=== PATIENT | female | born 1975 | race American Indian/Alaskan Native ===

== ENCOUNTER 2019-09-07 00:58 | Inpatient (IN) | payer OTHER ==
[2019-09-07] MEDS ORDERED: SODIUM CHLORIDE 0.9% 1000 ML IV SOLN IV ONE (01:19)
[2019-09-07] MEDS ORDERED: ONDANSETRON 4 MG/2 ML INJ IV ONE (01:21)
[2019-09-07] MEDS ORDERED: MORPHINE 4 MG/1 ML INJ IV ONE (01:21)
[2019-09-07] MEDS ORDERED: ACETAMINOPHEN 500 MG TAB PO ONE (01:21)
--- NOTE | 2019-09-07 01:30 | Emergency Department Report ---
ED General Adult HPI - General Chief complaint: Fever Stated complaint: FLU LIKE SYMPTOMS Time Seen by Provider: 09/07/19 01:09 Source: patient, EMS ( EMS documentation not available at time of chart dictation ), RN notes reviewed Mode of arrival: Stretcher Limitations: No Limitations - History of Present Illness Initial comments: This is a 43-year-old female. This patient is not known to this provider previously. The patient states that she is not . during the entire history and physical, I am chaperoned and escorted by nurse Rosalva Bell The patient states she does not have a local primary care doctor; she's been living over here in [place] for 3 years. While in [facility], she reports a history of heart attack, likely 2, obesity, hypertension, diabetes. The patient presents to the ER today with a complaint of nontraumatic headache, bilateral paracervical neck pain, left shoulder pain that moves down to her left upper extremity, bilateral flank pain, right upper quadrant pain, nausea vomiting, dark colored urine, global weakness, fevers and chills. Nausea and vomiting started morning. She reports too many episodes of nonbloody, nonbilious emesis to count. She did not vomit on Sunday. She's had no changes to her bowel movements that she is aware of. She denies dysuria. She endorses dark colored urine. There is no head trauma. There is no neck trauma. There are no recent motor vehicle accidents, and there is no recent chiropractic manipulation. There is no complaint of neck stiffness. There is no midline distal spinal pain. There is no lower abdominal pain. There is positive cough. There is positive global weakness. Symptoms are constant, radiates as noted, decreased with rest, and increase with physical exertion. She does not believe that she had the flu shot this year. -: Gradual, days(s) Quality: other Consistency: other Improves with: other Worsens with: other Associated Symptoms: other - Related Data Home Medications Medication Instructions Recorded Confirmed Last Taken No Known Home Medications [No 09/07/19 09/07/19 Unknown Reported Home Medications] Allergies Allergy/AdvReac Type Severity Reaction Status Date / Time No Known Allergies Allergy Verified 09/07/19 01:24 ED Review of Systems ROS: Stated complaint: FLU LIKE SYMPTOMS Other details as noted in HPI Constitutional: fever, malaise, weakness Eyes: denies: eye discharge ENT: denies: congestion Respiratory: cough Cardiovascular: denies: syncope Gastrointestinal: abdominal pain, nausea, vomiting. denies: diarrhea Genitourinary: other. denies: dysuria Musculoskeletal: back pain, arthralgia, myalgia Skin: denies: rash Neurological: headache, paresthesias Hematological/Lymphatic: denies: easy bleeding ED Past Medical Hx - Past Medical History Hx Hypertension: Yes Hx Heart Attack/AMI: Yes Hx Congestive Heart Failure: Yes Hx Diabetes: Yes Hx Renal Disease: Yes Additional medical history: anemia, pt has taken no meds for "a couple of years" - Surgical History Past Surgical History?: No - Social History Smoking Status: Never Smoker Substance Use Type: None - Medications Home Medications: Home Medications Medication Instructions Recorded Confirmed Last Taken Type No Known Home Medications [No 09/07/19 09/07/19 Unknown History Reported Home Medications] ED Physical Exam - General Limitations: No Limitations General appearance: alert, in no apparent distress - Head Head exam: Present: atraumatic, normocephalic - Eye Eye exam: Present: normal appearance, EOMI, other (visual acuity intact to finger counting, color perception, reading at a close distance). Absent: nystagmus - ENT ENT exam: Present: normal exam, normal orophraynx, mucous membranes moist, normal external ear exam - Neck Neck exam: Present: normal inspection, full ROM, other (there is no carotid bruit). Absent: tenderness, meningismus - Respiratory Respiratory exam: Present: normal lung sounds bilaterally. Absent: respiratory distress - Cardiovascular Cardiovascular Exam: Present: normal rhythm, tachycardia, normal heart sounds. Absent: systolic murmur, diastolic murmur, rubs, gallop - GI/Abdominal GI/Abdominal exam: Present: soft, tenderness, other (there is epigastric and right upper quadrant tenderness. There is a positive Gavin sign.). Absent: distended, guarding, rebound, rigid, pulsatile mass - Extremities Exam Extremities exam: Present: normal inspection, full ROM, other (2+ pulses noted in the bilateral upper, lower extremities. There is no long bone tenderness. Musculoskeletal compartments are soft. The pelvis is stable.). Absent: pedal edema, calf tenderness - Back Exam Back exam: Present: normal inspection, full ROM. Absent: tenderness, CVA ten derness (R), CVA tenderness (L), paraspinal tenderness, vertebral tenderness - Neurological Exam Neurological exam: Present: alert, oriented X3, other (there is no facial droop. The tongue is midline. Extraocular movements are intact bilaterally. Patient speaking in full complete sentences. Shoulder shrug is intact bilaterally. Hearing is grossly intact bilaterally. Visual acuity intact to finger counting and color perception at a close distance. 5/5 strength 4 extremities. Sensation intact to light touch in 4 extremities.). Absent: motor sensory deficit (downgoing plantar reflexes bilaterally. Full range of motion to the bilateral upper and lower extremities.) - Psychiatric Psychiatric exam: Present: normal affect, normal mood - Skin Skin exam: Present: warm, dry, intact, normal color. Absent: rash ED Course Vital Signs 09/07/19 09/07/19 09/07/19 01:12 01:19 01:30 Temperature 101.4 F H Pulse Rate 113 H 113 H 120 H Respiratory 19 18 21 Rate Blood Pressure 179/110 162/109 162/109 O2 Sat by Pulse 95 98 98 Oximetry 09/07/19 09/07/19 09/07/19 01:49 02:00 02:32 Temperature Pulse Rate 101 H Respiratory 18 16 Rate Blood Pressure 155/96 155/96 O2 Sat by Pulse 98 94 98 Oximetry 09/07/19 03:00 Temperature Pulse Rate 87 Respiratory 22 Rate Blood Pressure 146/89 O2 Sat by Pulse 96 Oximetry - Reevaluation(s) Reevaluation #1: 09/07/19 01:29 Parental diagnosis, including not limited to: Cholecystitis, pneumonia, intra- abdominal infection, complicated urinary tract infection, influenza, strep, bacteremia, viremia Assessment and plan: 43-year-old female with multiple complaints, with a nonf ocal neurologic exam, no demonstrated neurologic deficits, no midline spinal tenderness, no neck stiffness, no nuchal rigidity, with right upper quadrant tenderness, fever and tachycardia. Suspicious for pneumonia versus cholecystitis versus renal process. Patient will be resuscitated according to the sepsis pathway. Appropriate screening laboratory studies, x-ray the chest, EKG, CT scan abdomen pelvis ordered. We will reassess after her data points have resulted. The patient is morbidly obese, her ideal body weight is calculated to be 57 kg. Therefore, she will be given 3 L of normal saline wide open. If she requires additional fluid, we will resuscitate as needed. 09/07/19 01:31 Reevaluation #2: 09/07/19 04:05 Tachycardia resolving. Laboratory studies reviewed and appreciated. X-ray the chest grossly unremarkable. CT scan suggests possible biliary abnormality. Right upper quadrant ultrasound pending and ordered. Given tenderness, fever, exam, were concern for cholecystitis. Laboratory quadrant ultrasound is pending. Contacted general surgery on-call, Dr. Yamile Alfaro, who will following consultation. Contacted Hospital physician, Dr. Lagos, who will accept the patient to her medical service. ED Medical Decision Making - Lab Data Result diagrams: 09/07/19 01:28 09/07/19 01:28 Vital Signs 09/07/19 01:19 Temperature 101.4 F H Pulse Rate 113 H Respiratory 18 Rate Blood Pressure 162/109 O2 Sat by Pulse 98 Oximetry - EKG Data -: EKG Interpreted by Me EKG shows normal: sinus rhythm Rate: normal - EKG Data When compared to previous EKG there are: previous EKG unavailable 09/07/19 02:11 There is no prior EKG available for comparison. The EKG shows a sinus rhythm, normal axis, QTC 441 ms, there is low voltage, nonspecific T-wave abnormalities, the EKG is abnormal, there is high left ventricular voltage, the EKG is not consistent with ST elevation myocardial infarction. - Radiology Data Radiology results: pending, report reviewed, image reviewed interpreted by me: Print Report Referring Physician: PRATIK MAZARIEGOS Patient Name: ROMEO ARGUETA Date of : 1975 Sex: Female Report Date: 2019-09-07 Report Status: Finalized Findings [address] [address] Cat Scan Report Signed Patient: ROMEO ARGUETA MR#: [id number] : 1975 Acct:[id number] Age/Sex: 43 / F ADM Date: 09/07/19 Loc: ED Attending Dr: Ordering Physician: PRATIK MAZARIEGOS MD Date of Service: 09/07/19 Procedure(s): CT abdomen pelvis w con Accession Number(s): [id number] cc: PRATIK MAZARIEGOS MD CT abdomen pelvis w con INDICATION / CLINICAL INFORMATION: ruq pain, b/l flank pain , sepsis. TECHNIQUE: Axial CT imaging of abdomen and pelvis was obtained with IV contrast. Coronal and sagittal reformatted imaging obtained and reviewed. All CT scans at this location are performed using CT dose reduction for ALARA by means of automated exposure control. COMPARISON: None available. FINDINGS: CT abdomen with contrast demonstrates grossly normal appearance of the liver, spleen, pancreas, and left kidney. Gallbladder contains large gallstones and is mildly distended. No obvious inflammatory change surrounding the gallbladder. No bi liary dilatation. Along the lateral mid aspect of the right kidney there is suggestion of a 4.5 cm solid mass. This will need to be further evaluated with renal ultrasound CT pelvis with contrast demonstrates normal appearance of the appendix. No pelvic mass, free fluid, or focal inflammatory change noted. GI tract is unremarkable. Visualized lung bases are clear. No significant skeletal abnormality other than minimal spondylitic change. IMPRESSION: 1. Cholelithiasis. Gallbladder is mildly distended but I do not see any pericholecystic inflammatory change. If there is clinical concern for acute cholecystitis, gallbladder ultrasound may be of benefit. 2. Suggestion of 4.5 cm right renal mass. Recommend further evaluation with renal ultrasound in the near future. Signer Name: Michelle Sweet MD Signed: 09/07/2019 3:18 AM Workstation Name: [id number] Transcribed By: JR Dictated By: Michelle Sweet MD Electronically Authenticated By: Michelle Sweet MD Signed Date/Time: 09/07/19 0318 xr chest negative Critical care attestation.: If time is entered above; I have spent that time in minutes in the direct care of this critically ill patient, excluding procedure time. ED Disposition Clinical Impression: SIRS (systemic inflammatory response syndrome), Right upper quadrant abdominal pain Disposition: -09 OP ADMIT IP TO THIS HOSP Is pt being admited?: Yes Condition: Stable Referrals: PRIMARY CARE, [Primary Care Provider] - 3-5 Days
[2019-09-07 01:47] LABS: Basophils % (Auto) 0.5 % (0.0-1.8); Eosinophils % (Auto) 0.1 % (0.0-4.3); Hematocrit 38.3 % (30.3-42.9); Hemoglobin 12.9 gm/dl (10.1-14.3); Lymphocytes # (Auto) 1.2 K/mm3 (1.2-5.4); Lymphocytes % (Auto) 13.6 % (13.4-35.0); Mean Corpuscular HGB Conc 34 % (30-34); Mean Corpuscular Volume 83 fl (79-97); Monocytes % (Auto) 11.1 % (0.0-7.3); Platelet Count 259 K/mm3 (140-440); Red Blood Count 4.62 M/mm3 (3.65-5.03); Red Cell Distribution Width 14.4 % (13.2-15.2)
[2019-09-07 01:57] LABS: INR 1.09 (0.87-1.13)
[2019-09-07 01:58] LABS: Partial Thromboplastin Time 28.4 Sec. (24.2-36.6)
[2019-09-07 02:34] LABS: Alanine Aminotransferase 10 units/L (7-56); Albumin 3.9 g/dL (3.9-5); BUN/Creatinine Ratio 6; Blood Urea Nitrogen 5 mg/dL (7-17); Hemolysis Index 4
[2019-09-07 03:13] LABS: Bilirubin,Urine NEG (Negative); Blood,Urine MOD (Negative); Color,Urine Straw (Yellow); Mucus,Urine FEW /HPF; Protein,Urine <15 mg/dL mg/dL (Negative); Urobilinogen,Urine < 2.0 mg/dL (<2.0)
--- NOTE | 2019-09-07 03:23 | Cat Scan Report ---
CT abdomen pelvis w con INDICATION / CLINICAL INFORMATION: ruq pain, b/l flank pain , sepsis. TECHNIQUE: Axial CT imaging of abdomen and pelvis was obtained with IV contrast. Coronal and sagittal reformatte d imaging obtained and reviewed. All CT scans at this location are performed using CT dose reduction for ALARA by means of automated exposure control. COMPARISON: None available. FINDINGS: CT abdomen with contrast demonstrates grossly normal appearance of the liver, spleen, pancreas, and l eft kidney. Gallbladder contains large gallstones and is mildly distended. No obvious inflammatory ch elie surrounding the gallbladder. No biliary dilatation. Along the lateral mid aspect of the right ki dney there is suggestion of a 4.5 cm solid mass. This will need to be further evaluated with renal ul trasound CT pelvis with contrast demonstrates normal appearance of the appendix. No pelvic mass, free fluid, o r focal inflammatory change noted. GI tract is unremarkable. Visualized lung bases are clear. No significant skeletal abnormality other than minimal spondylitic change. IMPRESSION: 1. Cholelithiasis. Gallbladder is mildly distended but I do not see any pericholecystic inflammatory change. If there is clinical concern for acute cholecystitis, gallbladder ultrasound may be of benefi t. 2. Suggestion of 4.5 cm right renal mass. Recommend further evaluation with renal ultrasound in the n ear future. Signer Name: Michelle Sweet MD Signed: 09/07/2019 3:18 AM Workstation Name: [id number]
[2019-09-07] MEDS ORDERED: PIPERACIL/TAZOBACTA 4.5/NS 100 4.5 GM/100 ML VIAL IV ONE (03:43)
--- NOTE | 2019-09-07 04:16 | XRay Report ---
CHEST 1 VIEW INDICATION / CLINICAL INFORMATION: fever cough n/v sepsis. COMPARISON: None available. FINDINGS: SUPPORT DEVICES: None. HEART / MEDIASTINUM: Cardiac silhouette size is upper limits of normal with normal pulmonary vascular ity. LUNGS / PLEURA: No significant pulmonary or pleural abnormality. No pneumothorax. ADDITIONAL FINDINGS: No significant additional findings. IMPRESSION: 1. No acute pulmonary disease. Signer Name: Michelle Sweet MD Signed: 09/07/2019 4:12 AM Workstation Name: [id number]
[2019-09-07] MEDS ORDERED: ONDANSETRON 4 MG/2 ML INJ IV PRN ×2 (05:10→06:12)
--- NOTE | 2019-09-07 05:21 | Ultrasound Report ---
ULTRASOUND ABDOMEN, LIMITED (RIGHT UPPER QUADRANT) INDICATION / CLINICAL INFORMATION: ruq pain cholecystitis. COMPARISON: None available. FINDINGS: PANCREAS: Visualized portion shows no significant abnormality. LIVER: Slightly enlarged but otherwise unremarkable. GALLBLADDER: The lack contains numerous large gallstones. Gallbladder wall is borderline thickened. N o pericholecystic fluid. BILE DUCTS: No significant abnormality. Common bile duct measures 3-4 mm. FREE FLUID: None. ADDITIONAL FINDINGS: None. IMPRESSION: 1. Cholelithiasis with borderline gallbladder wall thickening. Findings are concerning for developing acute cholecystitis. 2. Sonographic imaging of the right kidney does not demonstrate a right renal mass. However CT scan d emonstrated a solid mass in the lateral midportion of the kidney Signer Name: Michelle Sweet MD Signed: 09/07/2019 5:17 AM Workstation Name: [id number]
[2019-09-07] MEDS ORDERED: DEXTROSE 50% IN WATER (25GM) 50 ML SYRINGE IV PRN (06:04)
[2019-09-07] MEDS ORDERED: METOCLOPRAMIDE 10 MG/2 ML INJ IV PRN (06:04)
[2019-09-07] MEDS ORDERED: KETOROLAC 30 MG/1 ML INJ IV PRN (06:12)
--- NOTE | 2019-09-07 06:19 | History and Physical Report ---
<STEPHON SWARTZ - Last Filed: 09/07/19 06:15> History of Present Illness Date of examination: 09/07/19 Date of admission: 09/07/19 05:10 Chief complaint: Nausea, vomiting, abdominal pain History of present illness: 43-year-old obese -[place] female with history of hypertension, diabetes, anxiety, anemia, HLD, tachycardia, and DE 2 (06/10/2004 & 06/16/2004) presented to [facility] ED with complaints of nausea, vomiting, chills, sweating, right upper quadrant pain for the past two days. Patient states that on Sunday she had eggs and bartholomew for breakfast. Shortly after she started feeling nauseous and had emesis 1, is accompanied by headache. She also developed right upper quadrant pain which she stated as constant but varies in intensity. At its worse her abdominal pain is 9/10. Patient states that her abdominal pain radiates to her back and neck. Her headache continued throughout the day, and she tried OTC ibuprofen every 4 hours with no relief. She began experiencing chills, sweats, hot flashes and suspected she had a fever but not did not check her temperature. On Sunday morning, she started experiencing lower back pain and thought that something was wrong with her kidneys. The patient stated that her urine was dark in color. She was unsure if this was due to poor hydration or renal failure so she decided to come in for further evaluation and treatment. Patient does not have a PCP and does not receive routine medical care. Last time she seen a medical provider was about a year ago when she was then [facility]. Past History Past Medical History: acute DE (2 (06/10/2004 and 06/16/2004)), anemia (chronic anemia), diabetes, heart failure, hypertension, hyperlipidemia, other (tachycardia, hypocalcemia, anxiety) Past Surgical History: ( (2008)) Social history: lives with family. denies: smoking, alcohol abuse Family history: hypertension, stroke, other (aneurysm) Medications and Allergies Allergies Allergy/AdvReac Type Severity Reaction Status Date / Time No Known Allergies Allergy Verified 09/07/19 01:24 Home Medications Medication Instructions Recorded Confirmed Last Taken Type No Known Home Medications [No 09/07/19 09/07/19 Unknown History Reported Home Medications] Active Meds: Active Medications Acetaminophen (Tylenol) 650 mg PO Q4H PRN PRN Reason: Pain MILD(1-3)/Fever >100.5/COMER Dextrose (D50w (25gm) Syringe) 50 ml IV Q30MIN PRN; Protocol PRN Reason: Hypoglycemia Enoxaparin Sodium (Enoxaparin) 40 mg SUB-Q DAILY ON LICENSE OF [facility] Sodium Chloride (Nacl 0.9% 1000 Ml) 1,000 mls @ 40 mls/hr IV DIRECT BEATA Insulin Human Lispro (Humalog) 0 unit SUB-Q Q6HR BEATA; Protocol Ketorolac Tromethamine (Toradol) 30 mg IV Q6H PRN PRN Reason: Pain, Moderate (4-6) Stop: 09/12/19 06:11 Metoclopramide HCl (Reglan) 10 mg IV Q6H PRN PRN Reason: Nausea And Vomiting Ondansetron HCl (Zofran) 4 mg IV Q6H PRN PRN Reason: Nausea And Vomiting Sodium Chloride (Sodium Chloride Flush Syringe 10 Ml) 10 ml IV BID BEATA Sodium Chloride (Sodium Chloride Flush Syringe 10 Ml) 10 ml IV PRN PRN PRN Reason: LINE FLUSH Sodium Chloride (Sodium Chloride Flush Syringe 10 Ml) 10 ml IV BID BEATA Sodium Chloride (Sodium Chloride Flush Syringe 10 Ml) 10 ml IV PRN PRN PRN Reason: LINE FLUSH Review of Systems All systems: negative Constitutional: fever, chills, sweats, weakness Gastrointestinal: abdominal pain (right upper quad), nausea, vomiting Neurological: headaches Exam - Physical Exam Narrative exam: General appearance: Present: No acute distress, alert and oriented 3, well- developed, obese, pleasant, adult female - EENT Eyes: Present: PERRL, EOM intact ENT: hearing intact, missing teeth - Neck Neck: Present: supple, normal ROM - Respiratory Respiratory effort: Non-labored Respiratory: bilateral: CTA - Cardiovascular Heart rate:98 (bpm) Rhythm:SR, portal borderline nonspecific T-wave abnormalities Heart Sounds: Present: S1, S2. - Extremities Extremities: no ischemia, pulses intact - Peripheral Assessment Peripheral Pulses: within normal limits - Abdominal General gastrointestinal: soft, beats, right upper quadrant tenderness,normal bowel sounds, - Integumentary Integumentary: Present: warm, dry - Musculoskeletal Musculoskeletal: generalized weakness, able to move all extremities -Neurological Neurological: CN II-XII grossly intact - Psychiatric Psychiatric: cooperative - Constitutional Vitals: Temp Pulse Resp BP Pulse Ox 101.4 F H 79 16 121/71 93 09/07/19 01:19 09/07/19 05:30 09/07/19 05:30 09/07/19 05:30 09/07/19 05:30 Results - Labs CBC & Chem 7: 09/07/19 01:28 09/07/19 01:28 Labs: Laboratory Last Values WBC 9.0 K/mm3 (4.5-11.0) 09/07/19 01:28 RBC 4.62 M/mm3 (3.65-5.03) 09/07/19 01:28 Hgb 12.9 gm/dl (10.1-14.3) 09/07/19 01:28 Hct 38.3 % (30.3-42.9) 09/07/19 01:28 MCV 83 fl (79-97) 09/07/19 01:28 MCH 28 pg (28-32) 09/07/19 01:28 MCHC 34 % (30-34) 09/07/19 01:28 RDW 14.4 % (13.2-15.2) 09/07/19 01:28 Plt Count 259 K/mm3 (140-440) 09/07/19 01:28 Lymph % (Auto) 13.6 % (13.4-35.0) 09/07/19 01:28 [place] % (Auto) 11.1 % (0.0-7.3) H 09/07/19 01:28 Eos % (Auto) 0.1 % (0.0-4.3) 09/07/19 01:28 Baso % (Auto) 0.5 % (0.0-1.8) 09/07/19 01:28 Lymph # 1.2 K/mm3 (1.2-5.4) 09/07/19 01:28 [place] # 1.0 K/mm3 (0.0-0.8) H 09/07/19 01:28 Eos # 0.0 K/mm3 (0.0-0.4) 09/07/19 01:28 Baso # 0.0 K/mm3 (0.0-0.1) 09/07/19 01:28 Seg Neutrophils % 74.7 % (40.0-70.0) H 09/07/19 01:28 Seg Neutrophils # 6.7 K/mm3 (1.8-7.7) 09/07/19 01:28 PT 14.0 Sec. (12.2-14.9) 09/07/19 01:28 INR 1.09 (0.87-1.13) 09/07/19 01:28 APTT 28.4 Sec. (24.2-36.6) 09/07/19 01:28 Sodium 135 mmol/L (137-145) L 09/07/19 01:28 Potassium 3.6 mmol/L (3.6-5.0) 09/07/19 01:28 Chloride 98.3 mmol/L (98-107) 09/07/19 01:28 Carbon Dioxide 24 mmol/L (22-30) 09/07/19 01:28 Anion Gap 16 mmol/L 09/07/19 01:28 BUN 5 mg/dL (7-17) L 09/07/19 01:28 Creatinine 0.9 mg/dL (0.7-1.2) 09/07/19 01:28 Estimated GFR > 60 ml/min 09/07/19 01:28 BUN/Creatinine Ratio 6 % 09/07/19 01:28 Glucose 105 mg/dL (65-100) H 09/07/19 01:28 Lactic Acid 1.10 mmol/L (0.7-2.0) 09/07/19 03:31 Calcium 9.0 mg/dL (8.4-10.2) 09/07/19 01:28 Magnesium 1.90 mg/dL (1.7-2.3) 09/07/19 01:28 Total Bilirubin 0.40 mg/dL (0.1-1.2) 09/07/19 01:28 AST 16 units/L (5-40) 09/07/19 01:28 ALT 10 units/L (7-56) 09/07/19 01:28 Alkaline Phosphatase 97 units/L (35-129) 09/07/19 01:28 Total Creatine Kinase 62 units/L (30-135) 09/07/19 01:28 Troponin T < 0.010 ng/mL (0.00-0.029) 09/07/19 01:28 Total Protein 7.8 g/dL (6.3-8.2) 09/07/19 01:28 Albumin 3.9 g/dL (3.9-5) 09/07/19 01:28 Albumin/Globulin Ratio 1.0 % 09/07/19 01:28 Lipase 20 units/L (13-60) 09/07/19 01:28 HCG, Quant < 2 mIU/mL (0-4) 09/07/19 01:28 Urine Color Straw (Yellow) 09/07/19 02:10 Urine Turbidity Clear (Clear) 09/07/19 02:10 Urine pH 7.0 (5.0-7.0) 09/07/19 02:10 Ur Specific [place] 1.006 (1.003-1.030) 09/07/19 02:10 Urine Protein <15 mg/dl mg/dL (Negative) 09/07/19 02:10 Urine Glucose (UA) Neg mg/dL (Negative) 09/07/19 02:10 Urine Ketones Neg mg/dL (Negative) 09/07/19 02:10 Urine Blood Mod (Negative) 09/07/19 02:10 Urine Nitrite Neg (Negative) 09/07/19 02:10 Urine Bilirubin Neg (Negative) 09/07/19 02:10 Urine Urobilinogen < 2.0 mg/dL (<2.0) 09/07/19 02:10 Ur Leukocyte Esterase Tr (Negative) 09/07/19 02:10 Urine WBC (Auto) 5.0 /HPF (0.0-6.0) 09/07/19 02:10 Urine RBC (Auto) 2.0 /HPF (0.0-6.0) 09/07/19 02:10 U Epithel Cells (Auto) < 1.0 /HPF (0-13.0) 09/07/19 02:10 Urine Mucus Few /HPF 09/07/19 02:10 Influenza A (Rapid) Negative (Negative) 09/07/19 02:50 Influenza B (Rapid) Negative (Negative) 09/07/19 02:50 Group A Strep Rapid Negative (Negative) 09/07/19 02:50 - Imaging and Cardiology Imaging and Cardiology: CXR: FINDINGS: SUPPORT DEVICES: None. HEART / MEDIASTINUM: Cardiac silhouette size is upper limits of normal with normal pulmonary vascularity. LUNGS / PLEURA: No significant pulmonary or pleural abnormality. No pneumothorax. ADDITIONAL FINDINGS: No significant additional findings. IMPRESSION: 1. No acute pulmonary disease. US Abd: FINDINGS: PANCREAS: Visualized portion shows no significant abnormality. LIVER: Slightly enlarged but otherwise unremarkable. GALLBLADDER: The lack contains numerous large gallstones. Gallbladder wall is borderline thickened. No pericholecystic fluid. BILE DUCTS: No significant abnormality. Common bile duct measures 3-4 mm. FREE FLUID: None. ADDITIONAL FINDINGS: None. IMPRESSION: 1. Cholelithiasis with borderline gallbladder wall thickening. Findings are concerning for developing acute cholecystitis. 2. Sonographic imaging of the right kidney does not demonstrate a right renal mass. However CT scan demonstrated a solid mass in the lateral midportion of the kidney CT Abd/Pelvis FINDINGS: CT abdomen with contrast demonstrates grossly normal appearance of the liver, spleen, pancreas, and left kidney. Gallbladder contains large gallstones and is mildly distended. No obvious inflammatory change surrounding the gallbladder. No biliary dilatation. Along the lateral mid aspect of the right kidney there is suggestion of a 4.5 cm solid mass. This will need to be further evaluated with renal ultrasound CT pelvis with contrast demonstrates normal appearance of the appendix. No pelvic mass, free fluid, or focal inflammatory change noted. GI tract is unremarkable. Visualized lung bases are clear. No significant skeletal abnormality other than minimal spondylitic change. IMPRESSION: 1. Cholelithiasis. Gallbladder is mildly distended but I do not see any pericholecystic inflammatory change. If there is clinical concern for acute cholecystitis, gallbladder ultrasound may be of benefit. 2. Suggestion of 4.5 cm right renal mass. Recommend further evaluation with renal ultrasound in the near future. Assessment and Plan Assessment and plan: 43-year-old obese -[place] female with history of hypertension, diabetes, anxiety, anemia, HLD, tachycardia, and DE 2 (06/10/2004 & 06/16/2004) presented to [facility] ED with complaints of nausea, vomiting, chills, sweating, right upper quadrant pain for the past two days. Cholelithiasis -Abdominal ultrasound showed: Cholelithiasis with borderline gallbladder wall thickening. Findings are concerning for developing acute cholecystitis. -CT abdomen and pelvis:Cholelithiasis. Gallbladder is mildly distended but I do not see any pericholecystic inflammatory change. -NPO -Gentle hydration with IVF -Continue Supportive Care -Dr. Alfaro (General Surgery) consulted, and following Hypertensive urgency -BP on admission 179/110 -Monitor BP -Resume home antihypertensive meds, when home medication reconciliation has been updated -IV hydralazine when necessary Renal Mass -CT abdomen and pelvis showed incidental finding of: of 4.5 cm right renal mass. -Nephrology consultation; recommendations appreciated DM2 -POC BG monitoring -SSI coverage prn -Hgb A1c pending Obesity -BMI 56.8kg -May benefit from lifestyle and diet modifications -May benefit from outpatient weight management program DVT PPX -On Lovenox Advance Directives: No VTE prophylaxis?: Chemical Plan of care discussed with patient/family: Yes <JUNIOR ORTEGA - Last Filed: 09/07/19 06:58> History of Present Illness Date of admission: 09/07/19 05:10 Medications and Allergies Active Meds: Active Medications Acetaminophen (Tylenol) 650 mg PO Q4H PRN PRN Reason: Pain MILD(1-3)/Fever >100.5/COMER Dextrose (D50w (25gm) Syringe) 50 ml IV Q30MIN PRN; Protocol PRN Reason: Hypoglycemia Enoxaparin Sodium (Enoxaparin) 40 mg SUB-Q DAILY BEATA Hydralazine HCl (Apresoline) 10 mg IV Q4HR PRN PRN Reason: Blood Pressure Sodium Chloride (Nacl 0.9% 1000 Ml) 1,000 mls @ 40 mls/hr IV DIRECT BEATA Piperacillin Sod/Tazobactam Sod (Zosyn/Ns 4.5gm/100ml) 4.5 gm in 100 mls @ 200 mls/hr IV Q8HR BEATA; Protocol Insulin Human Lispro (Humalog) 0 unit SUB-Q Q6HR BEATA; Protocol Ketorolac Tromethamine (Toradol) 30 mg IV Q6H PRN PRN Reason: Pain, Moderate (4-6) Stop: 09/12/19 06:11 Metoclopramide HCl (Reglan) 10 mg IV Q6H PRN PRN Reason: Nausea And Vomiting Ondansetron HCl (Zofran) 4 mg IV Q6H PRN PRN Reason: Nausea And Vomiting Sodium Chloride (Sodium Chloride Flush Syringe 10 Ml) 10 ml IV BID BEATA Sodium Chloride (Sodium Chloride Flush Syringe 10 Ml) 10 ml IV PRN PRN PRN Reason: LINE FLUSH Exam - Constitutional Vitals: Temp Pulse Resp BP Pulse Ox 101.4 F H 85 11 L 124/88 94 09/07/19 01:19 09/07/19 06:00 09/07/19 06:00 09/07/19 06:00 09/07/19 06:00 Results - Labs CBC & Chem 7: 09/07/19 01:28 09/07/19 01:28 Labs: Laboratory Last Values WBC 9.0 K/mm3 (4.5-11.0) 09/07/19 01:28 RBC 4.62 M/mm3 (3.65-5.03) 09/07/19 01:28 Hgb 12.9 gm/dl (10.1-14.3) 09/07/19 01:28 Hct 38.3 % (30.3-42.9) 09/07/19 01:28 MCV 83 fl (79-97) 09/07/19 01:28 MCH 28 pg (28-32) 09/07/19 01:28 MCHC 34 % (30-34) 09/07/19 01:28 RDW 14.4 % (13.2-15.2) 09/07/19 01:28 Plt Count 259 K/mm3 (140-440) 09/07/19 01:28 Lymph % (Auto) 13.6 % (13.4-35.0) 09/07/19 01:28 [place] % (Auto) 11.1 % (0.0-7.3) H 09/07/19 01:28 Eos % (Auto) 0.1 % (0.0-4.3) 09/07/19 01:28 Baso % (Auto) 0.5 % (0.0-1.8) 09/07/19 01:28 Lymph # 1.2 K/mm3 (1.2-5.4) 09/07/19 01:28 [place] # 1.0 K/mm3 (0.0-0.8) H 09/07/19 01:28 Eos # 0.0 K/mm3 (0.0-0.4) 09/07/19 01:28 Baso # 0.0 K/mm3 (0.0-0.1) 09/07/19 01:28 Seg Neutrophils % 74.7 % (40.0-70.0) H 09/07/19 01:28 Seg Neutrophils # 6.7 K/mm3 (1.8-7.7) 09/07/19 01:28 PT 14.0 Sec. (12.2-14.9) 09/07/19 01:28 INR 1.09 (0.87-1.13) 09/07/19 01:28 APTT 28.4 Sec. (24.2-36.6) 09/07/19 01:28 Sodium 135 mmol/L (137-145) L 09/07/19 01:28 Potassium 3.6 mmol/L (3.6-5.0) 09/07/19 01:28 Chloride 98.3 mmol/L (98-107) 09/07/19 01:28 Carbon Dioxide 24 mmol/L (22-30) 09/07/19 01:28 Anion Gap 16 mmol/L 09/07/19 01:28 BUN 5 mg/dL (7-17) L 09/07/19 01:28 Creatinine 0.9 mg/dL (0.7-1.2) 09/07/19 01:28 Estimated GFR > 60 ml/min 09/07/19 01:28 BUN/Creatinine Ratio 6 % 09/07/19 01:28 Glucose 105 mg/dL (65-100) H 09/07/19 01:28 Lactic Acid 1.10 mmol/L (0.7-2.0) 09/07/19 03:31 Calcium 9.0 mg/dL (8.4-10.2) 09/07/19 01:28 Magnesium 1.90 mg/dL (1.7-2.3) 09/07/19 01:28 Total Bilirubin 0.40 mg/dL (0.1-1.2) 09/07/19 01:28 AST 16 units/L (5-40) 09/07/19 01:28 ALT 10 units/L (7-56) 09/07/19 01:28 Alkaline Phosphatase 97 units/L (35-129) 09/07/19 01:28 Total Creatine Kinase 62 units/L (30-135) 09/07/19 01:28 Troponin T < 0.010 ng/mL (0.00-0.029) 09/07/19 01:28 Total Protein 7.8 g/dL (6.3-8.2) 09/07/19 01:28 Albumin 3.9 g/dL (3.9-5) 09/07/19 01:28 Albumin/Globulin Ratio 1.0 % 09/07/19 01:28 Lipase 20 units/L (13-60) 09/07/19 01:28 HCG, Quant < 2 mIU/mL (0-4) 09/07/19 01:28 Urine Color Straw (Yellow) 09/07/19 02:10 Urine Turbidity Clear (Clear) 09/07/19 02:10 Urine pH 7.0 (5.0-7.0) 09/07/19 02:10 Ur Specific [place] 1.006 (1.003-1.030) 09/07/19 02:10 Urine Protein <15 mg/dl mg/dL (Negative) 09/07/19 02:10 Urine Glucose (UA) Neg mg/dL (Negative) 09/07/19 02:10 Urine Ketones Neg mg/dL (Negative) 09/07/19 02:10 Urine Blood Mod (Negative) 09/07/19 02:10 Urine Nitrite Neg (Negative) 09/07/19 02:10 Urine Bilirubin Neg (Negative) 09/07/19 02:10 Urine Urobilinogen < 2.0 mg/dL (<2.0) 09/07/19 02:10 Ur Leukocyte Esterase Tr (Negative) 09/07/19 02:10 Urine WBC (Auto) 5.0 /HPF (0.0-6.0) 09/07/19 02:10 Urine RBC (Auto) 2.0 /HPF (0.0-6.0) 09/07/19 02:10 U Epithel Cells (Auto) < 1.0 /HPF (0-13.0) 09/07/19 02:10 Urine Mucus Few /HPF 09/07/19 02:10 Influenza A (Rapid) Negative (Negative) 09/07/19 02:50 Influenza B (Rapid) Negative (Negative) 09/07/19 02:50 Group A Strep Rapid Negative (Negative) 09/07/19 02:50 Assessment and Plan Assessment and plan: patient seen and examined, D/w [employer], agree with fluids, antibiotic, surgery consult
[2019-09-07] MEDS ORDERED: hydrALAZINE 20 MG/1 ML INJ IV PRN (06:23)
--- NOTE | 2019-09-07 10:32 | Consultation ---
History of Present Illness Consult date: 09/07/19 Reason for consult: gallstones Chief complaint: abdominal pain - History of present illness History of present illness: 43 yo F with hx of DM, HTN, HLD, gallstones presented to ER with 3 day hx of RUQ abdominal pain, sharp, nonradiating. The patient states it started several hours after eating eggs for dinner. +f/c. +n/v. She had one episode of pain like this in December which she was told was gallstones. No CP, SOB, c/d. Patient states she has lost 100 lbs on her own. Past History Past Medical History: acute CT (2 (06/10/2004 and 06/16/2004)), anemia (chronic anemia), diabetes, heart failure, hypertension, hyperlipidemia, other (tachycardia, hypocalcemia, anxiety) Past Surgical History: ( (2008)) Social history: lives with family. denies: smoking, alcohol abuse Family history: diabetes, hypertension, stroke, other (aneurysm, CABG x3) Medications and Allergies Allergies Allergy/AdvReac Type Severity Reaction Status Date / Time No Known Allergies Allergy Verified 09/07/19 01:24 Home Medications Medication Instructions Recorded Confirmed Last Taken Type No Known Home Medications [No 09/07/19 09/07/19 Unknown History Reported Home Medications] Active Meds: Active Medications Acetaminophen (Tylenol) 650 mg PO Q4H PRN PRN Reason: Pain MILD(1-3)/Fever >100.5/COMER Dextrose (D50w (25gm) Syringe) 50 ml IV Q30MIN PRN; Protocol PRN Reason: Hypoglycemia Enoxaparin Sodium (Enoxaparin) 40 mg SUB-Q DAILY BEATA Hydralazine HCl (Apresoline) 10 mg IV Q4HR PRN PRN Reason: Blood Pressure Sodium Chloride (Nacl 0.9% 1000 Ml) 1,000 mls @ 40 mls/hr IV DIRECT BEATA Piperacillin Sod/Tazobactam Sod (Zosyn/Ns 4.5gm/100ml) 4.5 gm in 100 mls @ 200 mls/hr IV Q8HR BEATA; Protocol Insulin Human Lispro (Humalog) 0 unit SUB-Q Q6HR BEATA; Protocol Ketorolac Tromethamine (Toradol) 30 mg IV Q6H PRN PRN Reason: Pain, Moderate (4-6) Stop: 09/12/19 06:11 Metoclopramide HCl (Reglan) 10 mg IV Q6H PRN PRN Reason: Nausea And Vomiting Ondansetron HCl (Zofran) 4 mg IV Q6H PRN PRN Reason: Nausea And Vomiting Sodium Chloride (Sodium Chloride Flush Syringe 10 Ml) 10 ml IV BID BEATA Sodium Chloride (Sodium Chloride Flush Syringe 10 Ml) 10 ml IV PRN PRN PRN Reason: LINE FLUSH Review of Systems All systems: negative (10 pt ROS performed and negative except for that listed in HPI) Exam Vital Signs Pulse Resp BP Pulse Ox 113 H 19 179/110 95 09/07/19 01:12 09/07/19 01:12 09/07/19 01:12 09/07/19 01:12 Narrative exam: Gen: AAOx3. NAD ENT: No scleral icterus or conjunctival pallor CV: s1, S2+ Resp: even and unlabored Abd: soft, ND, morbid obesity, RUQ and epigastric TTP. no r/r/g Ext: no c/c/e Results - Labs 09/07/19 01:28 09/07/19 01:28 Abnormal lab results 09/07/19 09/07/19 Range/Units 01:28 01:28 Dane % (Auto) 11.1 H (0.0-7.3) % Dane # 1.0 H (0.0-0.8) K/mm3 Seg Neutrophils % 74.7 H (40.0-70.0) % Sodium 135 L (137-145) mmol/L BUN 5 L (7-17) mg/dL Glucose 105 H (65-100) mg/dL Diabetes panel 09/07/19 09/07/19 Range/Units 01:28 06:40 Sodium 135 L (137-145) mmol/L Potassium 3.6 (3.6-5.0) mmol/L Chloride 98.3 (98-107) mmol/L Carbon Dioxide 24 (22-30) mmol/L BUN 5 L (7-17) mg/dL Creatinine 0.9 (0.7-1.2) mg/dL Glucose 105 H (65-100) mg/dL Hemoglobin A1c 5.1 (4-6) % Calcium 9.0 (8.4-10.2) mg/dL AST 16 (5-40) units/L ALT 10 (7-56) units/L Alkaline Phosphatase 97 (35-129) units/L Total Protein 7.8 (6.3-8.2) g/dL Albumin 3.9 (3.9-5) g/dL Calcium panel 09/07/19 Range/Units 01:28 Calcium 9.0 (8.4-10.2) mg/dL Albumin 3.9 (3.9-5) g/dL Pituitary panel 09/07/19 Range/Units 01:28 Sodium 135 L (137-145) mmol/L Potassium 3.6 (3.6-5.0) mmol/L Chloride 98.3 (98-107) mmol/L Carbon Dioxide 24 (22-30) mmol/L BUN 5 L (7-17) mg/dL Creatinine 0.9 (0.7-1.2) mg/dL Glucose 105 H (65-100) mg/dL Calcium 9.0 (8.4-10.2) mg/dL Adrenal panel 09/07/19 Range/Units 01:28 Sodium 135 L (137-145) mmol/L Potassium 3.6 (3.6-5.0) mmol/L Chloride 98.3 (98-107) mmol/L Carbon Dioxide 24 (22-30) mmol/L BUN 5 L (7-17) mg/dL Creatinine 0.9 (0.7-1.2) mg/dL Glucose 105 H (65-100) mg/dL Calcium 9.0 (8.4-10.2) mg/dL Total Bilirubin 0.40 (0.1-1.2) mg/dL AST 16 (5-40) units/L ALT 10 (7-56) units/L Alkaline Phosphatase 97 (35-129) units/L Total Protein 7.8 (6.3-8.2) g/dL Albumin 3.9 (3.9-5) g/dL - Imaging CT scan - abdomen: report reviewed, image reviewed CT scan - pelvis: report reviewed, image reviewed US - abdomen: report reviewed, image reviewed Assessment and Plan 43 yo F with 1. acute cholecystitis 2. UTI 3. morbid obesity 4. hx of DM 5. hx of HTN 6. hx sleep apnea Plan: 1. Clear liquid diet, NPO p MN tonight 2. IVF 3. IV abx - zosyn 4. OOB/ambulate 5. repeat am labs 6. prn pain and nausea control 7. CXR preop 8. Recommend cholecystectomy. All risks, benefits, alternatives to surgery discussed with patient and questions answered. Consent obtained. Pt states she will call son who is NOK and update on plan. Patient will be added to OR schedule for tomorrow 09/08/19. Thank you, please call with questions
[2019-09-07] MEDS: ACETAMINOPHEN 325 MG TAB PO PRN (11:26)
[2019-09-07] MEDS: PIPERACIL/TAZOBACTA 4.5/NS 100 4.5 GM/100 ML VIAL IV SCH ×3 (11:27→21:02)
[2019-09-07] MEDS: ENOXAPARIN 40 MG/0.4 ML INJ SUB-Q SCH (11:28)
[2019-09-07] MEDS: SODIUM CHLORIDE 0.9% 1000 ML 1,000 ML IV SCH (11:30)
[2019-09-07] MEDS: INSULIN LISPRO 100 UNIT/ML SUB-Q SCH ×2 (12:03→18:09)
--- NOTE | 2019-09-07 12:19 | Event Note ---
Date: 09/07/19 D/w . Patient needs to see Urologist to evaluate the R renal mass.
--- NOTE | 2019-09-07 17:39 | Event Note ---
Date: 09/07/19 43-year-old obese -[place] female patient was admitted through emergency room with right upper quadrant pain, workup is consistent with currently metastasis with possible cholecystitis Surgery evaluated the patient, planning cholecystectomy tomorrow. Patient's chart reviewed and updated the current management Plan of care reviewed with the patient and her nurse
[2019-09-08] MEDS: INSULIN LISPRO 100 UNIT/ML SUB-Q SCH ×4 (00:55→22:32)
[2019-09-08] MEDS: PIPERACIL/TAZOBACTA 4.5/NS 100 4.5 GM/100 ML VIAL IV SCH ×2 (05:02→19:23)
[2019-09-08 05:55] LABS: Basophils % (Auto) 0.6 % (0.0-1.8); Eosinophils % (Auto) 0.2 % (0.0-4.3); Lymphocytes # (Auto) 1.9 K/mm3 (1.2-5.4); Lymphocytes % (Auto) 26.2 % (13.4-35.0); Mean Corpuscular HGB Conc 33 % (30-34); Mean Corpuscular Volume 84 fl (79-97); Monocytes % (Auto) 13.7 % (0.0-7.3); Platelet Count 242 K/mm3 (140-440); Red Blood Count 3.93 M/mm3 (3.65-5.03); Red Cell Distribution Width 14.3 % (13.2-15.2)
[2019-09-08 06:20] LABS: BUN/Creatinine Ratio 4; Blood Urea Nitrogen 4 mg/dL (7-17); Calcium 8.3 mg/dL (8.4-10.2); Hemolysis Index 0
[2019-09-08] MEDS: ACETAMINOPHEN 325 MG TAB PO PRN (06:47)
[2019-09-08] MEDS: POTASSIUM CHLORIDE 10 MEQ 10 MEQ/100 ML BAG IV SCH ×3 (08:38→22:33)
[2019-09-08] MEDS: ENOXAPARIN 40 MG/0.4 ML INJ SUB-Q SCH (10:23)
--- NOTE | 2019-09-08 12:58 | Anesthesia Consultation ---
Anesthesia Consult and Med Hx Date of service: 09/08/19 - Airway Anesthetic Teeth Evaluation: Poor (multiple missing, careous teeth) ROM Head & Neck: Adequate Mental/Hyoid Distance: Adequate Mallampati Class: Class III Intubation Access Assessment: Possibly Difficult - Pre-Operative Health Status ASA Pre-Surgery Classification: ASA3, Emergency Proposed Anesthetic Plan: General - Pulmonary Hx Asthma: No COPD: No Hx Pneumonia: No - Cardiovascular System Hx Hypertension: Yes (no home meds) Hx Coronary Artery Disease: Yes (high cholesterol (no home meds)) Hx Heart Attack/AMI: Yes (PA x 2 (2003)) - Central Nervous System Hx Psychiatric Problems: Yes (anxiety (no home meds)) - Endocrine Hx Renal Disease: Yes Hx End Stage Renal Disease: No Hx Liver Disease: Yes (acute cholecystitis) Hx Non-Insulin Dependent Diabetes: Yes (no home meds) - Other Systems Hx Obesity: Yes (BMI 56.8)
[2019-09-08] MEDS ORDERED: PROPOFOL 200 MG/20 ML VIAL IV ONE (13:29)
[2019-09-08] MEDS ORDERED: fentaNYL 100 MCG/2 ML INJ ONE ×3 (13:29→18:10)
[2019-09-08] MEDS ORDERED: ROCURONIUM 50 MG/5 ML INJ IV ONE ×2 (13:29→16:20)
[2019-09-08] MEDS ORDERED: LIDOCAINE MPF (2%) 20 MG/1 ML VIAL 5 ML ONE (13:29)
[2019-09-08] MEDS ORDERED: BUPIVACAINE/PF (0.5%) 5 MG/1 ML 30 ML VIAL INFILTRATI ONE ×2 (13:38→16:45)
[2019-09-08] MEDS ORDERED: LIDOCAINE (1%) 10 MG/1 ML VIAL 20 ML MDV ONE (13:38)
[2019-09-08] MEDS ORDERED: ONDANSETRON 4 MG/2 ML INJ IV PRN (15:51)
--- NOTE | 2019-09-08 15:51 | Anesthesia Day of Surgery ---
Anesthesia Day of Surgery - Day of Surgery Patient Examined: Yes Patient H&P Reviewed: Yes Patient is NPO: Yes
[2019-09-08] MEDS ORDERED: GLYCOPYRROLATE 0.4 MG/2 ML INJ ONE (15:57)
[2019-09-08] MEDS ORDERED: dexAMETHasone 20 MG/5 ML VIAL ONE (16:21)
[2019-09-08] MEDS ORDERED: ONDANSETRON 4 MG/2 ML INJ ONE (16:21)
[2019-09-08] MEDS ORDERED: LIDOCAINE (1%) 10 MG/1 ML VIAL 20 ML MDV INFILTRATI ONE (16:45)
[2019-09-08] MEDS ORDERED: WATER FOR IRRIG STERILE 1,500 ML BOTTLE IR ONE (16:47)
[2019-09-08] MEDS ORDERED: SODIUM CHLORIDE 0.9% IRR 1,500 ML BOTTLE IR ONE (16:48)
[2019-09-08] MEDS ORDERED: NEOSTIGMINE 10MG/10 ML INJ MDV ONE (17:08)
--- NOTE | 2019-09-08 17:44 | Post Operative Note ---
Date of procedure: 09/08/19 Pre-op diagnosis: acute cholecystitis Post-op diagnosis: same Findings: thickened gallbladder wall with several very large stones in gallbladder neck Procedure: robotic assisted cholecystectomy Anesthesia: RASHADA, local Surgeon: HERI JEROME Hematology Specialist: MELISSA CRISTINA Estimated blood loss: minimal Pathology: list (gallbladder) Specimen disposition: to lab Condition: stable Disposition: PACU
--- NOTE | 2019-09-08 18:10 | Progress Note ---
Assessment and Plan Assessment and plan: 43-year-old obese -[place] female with history of hypertension, diabetes, anxiety, anemia, HLD, tachycardia, and MS 2 (06/10/2004 & 06/16/2004) presented to [facility] ED with complaints of nausea, vomiting, chills, sweating, right upper quadrant pain for the past two days. Evaluated by surgery s/p cholecystectomy today --Cholelithiasis/acute cholecystitis Empiric antibiotics, surgery evaluated the patient Status post cholecystectomy today Closely monitor, advance the diet Possible discharge home tomorrow if stable --Hypertensive urgency; present on admission BP well controlled, continue current antihypertensives When necessary hydralazine --Renal Mass; CT abdomen and pelvis showed incidental 4.5 cm right renal mass. Asymptomatic, Out Patient urology evaluation --2 diabetes mellitus; Accu-Chek sliding scale coverage ADA diet Insulin as needed --Morbid Obesity:BMI 56.8kg Lifestyle modifications Weight reduction as tolerated --DVT prophylaxis; lovenox Monitor closely and adjust the management as needed Disposition :Possible discharge home tomorrow if stable History Interval history: Patient seen and examined medical records Admitted with acute cholecystitis Underwent lap cholecystectomy Patient feels better Vital signs noted Hospitalist Physical - Constitutional Vitals: Temp Pulse Resp BP Pulse Ox 97.2 F L 66 18 122/65 95 09/08/19 11:24 09/08/19 11:24 09/08/19 11:24 09/08/19 11:24 09/08/19 11:24 General appearance: Present: no acute distress, well-nourished, obese (morbid obesity) - EENT Eyes: Present: PERRL, EOM intact - Neck Neck: Present: supple, normal ROM - Respiratory Respiratory effort: normal Respiratory: bilateral: diminished, negative: rales, rhonchi, wheezing - Cardiovascular Rhythm: regular Heart Sounds: Present: S1 & S2 - Extremities Extremities: no ischemia, No edema - Abdominal General gastrointestinal: soft, tender (no guarding no rigidity), non-distended, normal bowel sounds - Integumentary Integumentary: Present: clear, warm - Psychiatric Psychiatric: appropriate mood/affect, cooperative - Neurologic Neurologic: CNII-XII intact, moves all extremities Results - Labs CBC & Chem 7: 09/08/19 05:03 09/08/19 05:03 Labs: Laboratory Last Values WBC 7.1 K/mm3 (4.5-11.0) 09/08/19 05:03 RBC 3.93 M/mm3 (3.65-5.03) 09/08/19 05:03 Hgb 11.0 gm/dl (10.1-14.3) 09/08/19 05:03 Hct 33.0 % (30.3-42.9) 09/08/19 05:03 MCV 84 fl (79-97) 09/08/19 05:03 MCH 28 pg (28-32) 09/08/19 05:03 MCHC 33 % (30-34) 09/08/19 05:03 RDW 14.3 % (13.2-15.2) 09/08/19 05:03 Plt Count 242 K/mm3 (140-440) 09/08/19 05:03 Lymph % (Auto) 26.2 % (13.4-35.0) 09/08/19 05:03 Dorado % (Auto) 13.7 % (0.0-7.3) H 09/08/19 05:03 Eos % (Auto) 0.2 % (0.0-4.3) 09/08/19 05:03 Baso % (Auto) 0.6 % (0.0-1.8) 09/08/19 05:03 Lymph # 1.9 K/mm3 (1.2-5.4) 09/08/19 05:03 Dorado # 1.0 K/mm3 (0.0-0.8) H 09/08/19 05:03 Eos # 0.0 K/mm3 (0.0-0.4) 09/08/19 05:03 Baso # 0.0 K/mm3 (0.0-0.1) 09/08/19 05:03 Seg Neutrophils % 59.3 % (40.0-70.0) 09/08/19 05:03 Seg Neutrophils # 4.2 K/mm3 (1.8-7.7) 09/08/19 05:03 PT 14.0 Sec. (12.2-14.9) 09/07/19 01:28 INR 1.09 (0.87-1.13) 09/07/19 01:28 APTT 28.4 Sec. (24.2-36.6) 09/07/19 01:28 Sodium 137 mmol/L (137-145) 09/08/19 05:03 Potassium 3.4 mmol/L (3.6-5.0) L 09/08/19 05:03 Chloride 103.2 mmol/L (98-107) 09/08/19 05:03 Carbon Dioxide 22 mmol/L (22-30) 09/08/19 05:03 Anion Gap 15 mmol/L 09/08/19 05:03 BUN 4 mg/dL (7-17) L 09/08/19 05:03 Creatinine 0.9 mg/dL (0.7-1.2) 09/08/19 05:03 Estimated GFR > 60 ml/min 09/08/19 05:03 BUN/Creatinine Ratio 4 % 09/08/19 05:03 Glucose 88 mg/dL (65-100) 09/08/19 05:03 POC Glucose 78 (70-105) 09/08/19 11:35 Hemoglobin A1c 5.1 % (4-6) 09/07/19 06:40 Lactic Acid 1.10 mmol/L (0.7-2.0) 09/07/19 03:31 Calcium 8.3 mg/dL (8.4-10.2) L 09/08/19 05:03 Magnesium 1.90 mg/dL (1.7-2.3) 09/07/19 01:28 Total Bilirubin 0.40 mg/dL (0.1-1.2) 09/07/19 01:28 AST 16 units/L (5-40) 09/07/19 01:28 ALT 10 units/L (7-56) 09/07/19 01:28 Alkaline Phosphatase 97 units/L (35-129) 09/07/19 01:28 Total Creatine Kinase 62 units/L (30-135) 09/07/19 01:28 Troponin T < 0.010 ng/mL (0.00-0.029) 09/07/19 01:28 Total Protein 7.8 g/dL (6.3-8.2) 09/07/19 01:28 Albumin 3.9 g/dL (3.9-5) 09/07/19 01:28 Albumin/Globulin Ratio 1.0 % 09/07/19 01:28 Lipase 20 units/L (13-60) 09/07/19 01:28 HCG, Quant < 2 mIU/mL (0-4) 09/07/19 01:28 Urine Color Straw (Yellow) 09/07/19 02:10 Urine Turbidity Clear (Clear) 09/07/19 02:10 Urine pH 7.0 (5.0-7.0) 09/07/19 02:10 Ur Specific Nenzel 1.006 (1.003-1.030) 09/07/19 02:10 Urine Protein <15 mg/dl mg/dL (Negative) 09/07/19 02:10 Urine Glucose (UA) Neg mg/dL (Negative) 09/07/19 02:10 Urine Ketones Neg mg/dL (Negative) 09/07/19 02:10 Urine Blood Mod (Negative) 09/07/19 02:10 Urine Nitrite Neg (Negative) 09/07/19 02:10 Urine Bilirubin Neg (Negative) 09/07/19 02:10 Urine Urobilinogen < 2.0 mg/dL (<2.0) 09/07/19 02:10 Ur Leukocyte Esterase Tr (Negative) 09/07/19 02:10 Urine WBC (Auto) 5.0 /HPF (0.0-6.0) 09/07/19 02:10 Urine RBC (Auto) 2.0 /HPF (0.0-6.0) 09/07/19 02:10 U Epithel Cells (Auto) < 1.0 /HPF (0-13.0) 09/07/19 02:10 Urine Mucus Few /HPF 09/07/19 02:10 Influenza A (Rapid) Negative (Negative) 09/07/19 02:50 Influenza B (Rapid) Negative (Negative) 09/07/19 02:50 Group A Strep Rapid Negative (Negative) 09/07/19 02:50 Active Medications - Current Medications Current Medications: Generic Name Dose Route Start Last Admin Trade Name Freq PRN Reason Stop Dose Admin Acetaminophen 650 mg 09/07/19 05:10 09/08/19 06:47 Tylenol PO 650 mg Q4H PRN Administration Pain MILD(1-3)/Fever >100.5/COMER Dextrose 50 ml 09/07/19 06:04 D50w (25gm) Syringe IV Q30MIN PRN Hypoglycemia Protocol Enoxaparin Sodium 40 mg 09/07/19 10:00 09/08/19 10:23 Enoxaparin SUB-Q Not Given DAILY [facility] Fentanyl 50 mcg 09/08/19 15:51 Sublimaze IV Q5MIN PRN Pain , Severe (7-10) Hydralazine HCl 10 mg 09/07/19 06:23 Apresoline IV Q4HR PRN Blood Pressure Sodium Chloride 1,000 mls @ 40 mls/hr 09/07/19 07:00 09/07/19 11:30 Nacl 0.9% 1000 Ml IV 40 mls/hr DIRECT BEATA Administration Insulin Human Lispro 0 unit 09/07/19 12:00 09/08/19 06:52 Humalog SUB-Q Not Given Q6HR [facility] Protocol Metoclopramide HCl 10 mg 09/07/19 06:04 Reglan IV Q6H PRN Nausea And Vomiting Morphine Sulfate 2 mg 09/08/19 17:45 Morphine IV Q4H PRN Pain , Severe (7-10) Ondansetron HCl 4 mg 09/07/19 06:12 Zofran IV Q6H PRN Nausea And Vomiting Ondansetron HCl 4 mg 09/08/19 15:51 Zofran IV ONCE PRN Nausea And Vomiting Oxycodone/Acetaminophen 2 tab 09/08/19 17:45 Percocet 5/325 PO Q6H PRN Pain, Moderate (4-6) Sodium Chloride 10 ml 09/07/19 10:00 09/08/19 14:45 Sodium Chloride Flush Syringe 10 Ml IV 10 ml BID BEATA Administration Sodium Chloride 10 ml 09/07/19 05:10 Sodium Chloride Flush Syringe 10 Ml IV PRN PRN LINE FLUSH Nutrition/Malnutrition Assess - Dietary Evaluation Nutrition/Malnutrition Findings: Nutrition Notes Start: 09/08/19 12:36 Freq: Status: Active Protocol: Document 09/08/19 12:36 LM (Rec: 09/08/19 12:43 LM [id number]) Nutrition Notes Initial or Follow up Brief Note Current Diagnosis Diabetes,Hyperlipidemia Other Pertinent Diagnosis abdominal pain, N/V, SIRS, anemia Current Diet NPO Subjective/Other Information RN screen for skin risk. Anthony score of 17. No documentation of wounds in chart. Pt NPO due to cholecystectomy today. Nutrition Intervention Follow-Up By: 09/09/19 Additional Comments F/U for assessment needs
[2019-09-08] MEDS: fentaNYL 100 MCG/2 ML INJ IV PRN ×2 (18:12→18:22)
[2019-09-08] MEDS: MORPHINE 2 MG/1 ML INJ IV PRN (19:47)
--- NOTE | 2019-09-08 20:53 | Post Anesthesia Evaluation ---
- Post Anesthesia Evaluation Patient Participated: Yes Airway Patent: Yes Stable Respiratory Function: Yes Nausea/Vomiting: No Temp > 96.8F: Yes Pain Manageable: Yes Adequeate Hydration: Yes Anesthesia Complications: No Block Receding Appropriately: Not Applicable Patient on Ventilator: No
[2019-09-08] MEDS: oxyCODONE /ACETAMINOPHEN 5-325MG TAB PO PRN (22:56)
[2019-09-08] MEDS: SODIUM CHLORIDE 0.9% 1000 ML 1,000 ML IV SCH (22:57)
[2019-09-09] MEDS: INSULIN LISPRO 100 UNIT/ML SUB-Q SCH ×3 (01:07→12:05)
[2019-09-09] MEDS: MORPHINE 2 MG/1 ML INJ IV PRN (05:05)
[2019-09-09] MEDS: oxyCODONE /ACETAMINOPHEN 5-325MG TAB PO PRN (08:26)
[2019-09-09] MEDS: ENOXAPARIN 40 MG/0.4 ML INJ SUB-Q SCH (10:02)
[2019-09-09 12:58] VITALS: BP 130/72
--- NOTE | 2019-09-09 13:50 | Progress Note ---
Assessment and Plan 43 yo F s/p robotic assisted cholecystectomy, POD 1 Plan: 1. Soft diet 2. dc IVF 3. prn pain control 4. abx per UTI - pt started on cipro PO, further management per 1' service 5. OOB/ambulate 6. prn PO pain control 7. incentive spirometry Ok for dc from surgery standpoint. Pt instructed to call for follow up appointment. Printed DC instructions left on chart. Thank you, please call with questions. Subjective Date of service: 09/09/19 Narrative: Pt seen and examined. c/o pain in her neck. No n/v but moderately decreased appetite. Some epigastric abdominal discomfort. No f/c. Objective Vital Signs - 12hr 09/09/19 09/09/19 09/09/19 04:00 09:16 11:36 Temperature 98.3 F 97.3 F L 97.9 F Pulse Rate 63 82 76 Respiratory 19 20 22 Rate Blood Pressure 121/62 130/72 Blood Pressure 151/72 [Right] O2 Sat by Pulse 95 97 95 Oximetry - General physical appearance Narrative Exam: Gen: AAOx3. NAD ENT: no bruising, hematoma CV: s1, S2+ Resp: even and unlabored Abd: soft, NT, ND. incisions c/d/i Ext: no c/c/e - Labs 09/08/19 05:03 09/09/19 08:52 Diabetes panel 09/09/19 Range/Units 08:52 Potassium 3.8 (3.6-5.0) mmol/L Pituitary panel 09/09/19 Range/Units 08:52 Potassium 3.8 (3.6-5.0) mmol/L Adrenal panel 09/09/19 Range/Units 08:52 Potassium 3.8 (3.6-5.0) mmol/L
--- NOTE | 2019-09-09 14:18 | Discharge Summary ---
Providers - Providers Date of Admission: 09/07/19 05:10 Date of discharge: 09/09/19 Attending physician: PORFIRIO MAHONEY 09/07/19 03:42 Consult to Physician [CONS] Urgent Comment: Dr. Jackson spoke with Dr. Jerome @ [phone] Consulting Provider: HERI JEROME Physician Instructions: Reason For Exam: sepsis cholecystitis 09/07/19 06:28 Consult to Physician [CONS] Routine Comment: Consulting Provider: ENRIQUE CLINE Physician Instructions: Reason For Exam: 4.5 cm right renal mass. Primary care physician: ADMINISTRATIVE REPRESENTATIVE Hospitalization Condition: Stable Hospital course: 43-year-old obese -[place] female with history of hypertension, diabetes, anxiety, anemia, HLD, tachycardia, and WI 2 (06/10/2004 & 06/16/2004) p resented to [facility] ED with complaints of nausea, vomiting, chills, sweating, right upper quadrant pain for the past two days. Evaluated by surgery s/p cholecystectomy on 09/08/19, tolerating diet, will f/u with surgery outpt. Patient was discharged home in stable condition with outpatient follow-up. Discharge diagnosis: --Cholelithiasis/acute cholecystitis Empiric antibiotics, surgery evaluated the patient Status post cholecystectomy Closely monitored, advance the diet discharge home in stable outpatient follow-up with surgery at --Hypertensive urgency; present on admission BP well controlled, continue current antihypertensives When necessary hydralazine --Renal Mass; CT abdomen and pelvis showed incidental 4.5 cm right renal mass. Abdominal ultrasound showed following 1. Cholelithiasis with borderline gallbladder wall thickening. Findings are concerning for developing acute cholecystitis. 2. Sonographic imaging of the right kidney does not demonstrate a right renal mass. However CT scan demonstrated a solid mass in the lateral midportion of the kidney. Patient was Asymptomatic, recommended Out Patient urology evaluation --2 diabetes mellitus; Accu-Chek sliding scale coverage ADA diet Insulin as needed --Morbid Obesity:BMI 56.8kg Lifestyle modifications, Weight reduction as tolerated --DVT prophylaxis; lovenox Disposition : discharge home Hospitalist Physical General appearance: Present: no acute distress, well-nourished, obese (morbid obesity) - EENT Eyes: Present: PERRL, EOM intact - Neck Neck: Present: supple, normal ROM - Respiratory Respiratory effort: normal Respiratory: bilateral: diminished, negative: rales, rhonchi, wheezing - Cardiovascular Rhythm: regular Heart Sounds: Present: S1 & S2 - Extremities Extremities: no ischemia, No edema - Abdominal General gastrointestinal: soft, tender (no guarding no rigidity), non-distended, normal bowel sounds - Integumentary Integumentary: Present: clear, warm - Psychiatric Psychiatric: appropriate mood/affect, cooperative - Neurologic Neurologic: CNII-XII intact, moves all extremities Disposition: DC-01 TO HOME OR SELFCARE Time spent for discharge: 34 minutes Core Measure Documentation - Palliative Care Palliative Care/ Comfort Measures: Not Applicable - Core Measures Any of the following diagnoses?: none Exam - Constitutional Vitals: Temp Pulse Resp BP Pulse Ox 97.9 F 76 22 130/72 95 09/09/19 11:36 09/09/19 11:36 09/09/19 11:36 09/09/19 11:36 09/09/19 11:36 Plan Activity: advance as tolerated Weight Bearing Status: Non-Weight Bearing (till clears by surgery) Diet: low fat, low salt Additional Instructions: Follow-up with urologist as outpatient Follow up with: PRIMARY CARE, [Primary Care Provider] - 3-5 Days HERI JEROME DO [Staff Physician] - 7 Days Prescriptions: oxyCODONE /ACETAMINOPHEN [Percocet 5/325 mg] 1 tab PO Q6H PRN #10 tablet PRN Reason: Pain, Moderate (4-6)
[2019-09-09] MEDS ORDERED: levoFLOXacin 500 MG TAB PO SCH (15:00)
--- NOTE | 2019-09-10 10:59 | Operative Report ---
PREOPERATIVE DIAGNOSIS: [id number] cholecystitis. POSTOPERATIVE DIAGNOSIS: Gxzrv-[id number]-tpoitiw cholecystitis. FINDINGS: Thickened gallbladder wall with numerous very large stones in the gallbladder neck. PROCEDURE: Robotic-assisted cholecystectomy. ANESTHESIA: General endotracheal anesthesia, local. SURGEON: Bailey Alfaro DO. CRITICAL POWER TECHNICIAN: Vincent Ponce MD ESTIMATED BLOOD LOSS: Minimal. PATHOLOGY: Gallbladder. SPECIMEN DISPOSITION: To lab. CONDITION DISPOSITION: The patient stable to PACU. HISTORY OF PRESENT ILLNESS AND INDICATION: The patient is a 43-year-old female who presented to the Emergency Room with complaints of right upper quadrant abdominal pain, nausea and vomiting. She was found to have cholelithiasis with right upper quadrant pain. Cholecystectomy was recommended. All risks, benefits, and alternatives of surgery discussed with the patient and questions answered. Consent was obtained. PROCEDURE IN DETAIL: The patient was identified in the preoperative area and taken back to the operating room and placed on the operating table in supine position. After anesthesia was induced, the right arm was tucked with all bony prominences padded appropriately. Abdomen was prepped and draped in the usual sterile fashion. A timeout performed. Due to the patient's morbid obesity with a BMI of 56.8, the surgery did take more time than expected. A local anesthetic was infiltrated into all skin incision sites. A chava incision was made in the left upper quadrant at Matta's point through which a Veress needle was inserted. The Veress needle positioning was confirmed using the saline drop test and the abdomen insufflated to 15 mmHg. Another incision was made in the left upper quadrant through which a 5 mm Optiview trocar was inserted. Abdomen was inspected. There was no underlying injury to any of the abdominal structures. The patient was placed in reverse Trendelenburg and tilted to the left. A 12 mm supraumbilical trocar was placed under direct visualization. Two right-sided 8 mm robotic trocars were placed under direct visualization. The 5 mm trocar in the left upper quadrant was removed and replaced with an 8 mm robotic trocar under direct visualization. The gallbladder was visualized and the robot was then docked. The hook was placed in arm #1, a Cadiere grasper in arm #2 and a ProGrasp in arm #1. Surgeon was then transferred to the console. The gallbladder fundus was grasped and retracted cephalad and above the liver. There were dense omental adhesions to the gallbladder, which were very carefully and meticulously dissected using a combination of blunt dissection and electrocautery. The adhesiolysis did take >30 minutes as the patient had a large amount of fatty adhesions to the gallbladder. Once all the adhesions were taken down and the entire gallbladder visualized, the gallbladder was further retracted cephalad and above the liver. Gallbladder neck was identified. There were numerous hard stones impacted in the neck of the gallbladder. The gallbladder infundibulum was grasped and retracted laterally and the cystic artery and duct were carefully skeletonized. The cystic duct and artery were seen as only two structures entering the gallbladder and the liver bed was visualized posteriorly. Once the critical view was obtained, the cystic artery was clipped with 1 clip proximally and was transected using hook electrocautery. Two clips were placed on the proximal aspect of the cystic duct and 1 distally and this was transected using EndoShears by the players assistant surgeon. The gallbladder was then dissected off the liver bed using hook electrocautery. The gallbladder was placed in the right upper quadrant and the gallbladder fossa and liver bed were examined for hemostasis. Hemostasis was carefully achieved using electrocautery. Once hemostasis was ensured, the clips were visualized and were intact. There was no bleeding or bile leakage seen from the surgical bed. The robot was then undocked and the surgeon scrubbed back in. The remainder of the case was performed laparoscopically. The gallbladder was placed into EndoCatch bag and removed via the 12 mm port. The fascia of the 12 mm port did have to be extended in order to accommodate removal of the large stones in the gallbladder. Wenceslao powder was placed in in the surgical field. The patient was placed in neutral position and the Ray-Rosemarie in the abdomen was removed. The liver bed was once again checked and there was hemostasis. The 12 mm port fascia was then closed with interrupted 0 Vicryl suture using the Ari-Rosita device. The remainder of the ports were removed under direct visualization and the abdomen desufflated. Skin incisions were once again infiltrated with local anesthetic and skin closed with 4-0 Monocryl subcuticular stitches and skin glue. At the end of the case, all sponge, instrument, sharp counts were correct x 2. The patient was awoken from anesthesia, extubated, and taken to PACU in stable condition. JOB# [id number] GIULIANA/MANISHA HUGO
== END 2019-09-09 15:40 | disposition home or self-care (01) | DRG 418 ==
LOC: ED 00:58 → 3B-SURG 05:10
PROVIDERS: ADMIT Internal Medicine; ATTEND Internal Medicine
PROC: 0FT44ZZ Resection of Gallbladder, Percutaneous Endoscopic Approach (ICD-10-PCS; principal; 2019-09-08)
PROC: 0DNU4ZZ Release Omentum, Percutaneous Endoscopic Approach (ICD-10-PCS; 2019-09-08)
PROC: 8E0W4CZ Robotic Assisted Procedure of Trunk Region, Percutaneous Endoscopic Approach (ICD-10-PCS; 2019-09-08)
DX: K80.12 Calculus of gallbladder with acute and chronic cholecystitis without obstruction (principal); Z68.43 Body mass index [BMI] 50.0-59.9, adult; N39.0 Urinary tract infection, site not specified; R65.10 Systemic inflammatory response syndrome (SIRS) of non-infectious origin without acute organ dysfunction; E66.01 Morbid (severe) obesity due to excess calories; N28.89 Other specified disorders of kidney and ureter; K82.8 Other specified diseases of gallbladder; I16.0 Hypertensive urgency; E11.9 Type 2 diabetes mellitus without complications; E78.00 Pure hypercholesterolemia, unspecified; I25.10 Atherosclerotic heart disease of native coronary artery without angina pectoris; I11.0 Hypertensive heart disease with heart failure; K66.0 Peritoneal adhesions (postprocedural) (postinfection); I50.9 Heart failure, unspecified; F41.9 Anxiety disorder, unspecified; E78.5 Hyperlipidemia, unspecified; I25.2 Old myocardial infarction; Z82.49 Family history of ischemic heart disease and other diseases of the circulatory system; Z82.3 Family history of stroke; Z83.3 Family history of diabetes mellitus; Z71.3 Dietary counseling and surveillance; Z79.84 Long term (current) use of oral hypoglycemic drugs
CPT/HCPCS: 36415; 71045; 74177; 76705; 80048; 80053; 81001; 82140; 82550; 82962; 83036; 83690; 83735; 84132; 84484; 84702; 85025; 85610; 85730; 87040; 87076; 87086; 87116; 87186; 87400; 87430; 88304; 93005; 93010; 96374; G0378; J0360; J1100; J1650; J1885; J2270; J2405; J2543; J2704; J2710; J3010; J3480; J7030; Q9967